=== PATIENT | female | born 1980 | race African-American/Black ===

== ENCOUNTER 2022-10-02 22:46 | Emergency (ER) | payer OTHER, SELFPAY ==
[2022-10-02] MEDS ORDERED: Lidocaine 1% (PF) 30 ML VIAL ONE (23:01)
[2022-10-02] MEDS ORDERED: Bacitracin 1 PK ONE (23:14)
== END 2022-10-02 23:20 | disposition home or self-care (01) ==
LOC: NAV ERS 22:46
DX: S91.201A Unspecified open wound of right great toe with damage to nail, initial encounter (principal); W22.8XXA Striking against or struck by other objects, initial encounter
CPT/HCPCS: 11750; J2001